=== PATIENT | female | born 1970 | race Hispanic/Latino ===

== ENCOUNTER 2017-01-13 01:11 | Emergency (ER) | payer OTHER ==
[~2017-01-13] VITALS: Ht 157.5 cm; Wt 61.2 kg
[~2017-01-13 01:11] MED LIST: FLEXERIL10 MG PO; MEDROL4 MG PO; NORCO 325 MG-51 TAB PO; TESSALON PERLE100 MG PO; ZITHROMAX Z-PA250 M1 PO
--- NOTE | 2017-01-13 01:16 | ED GI/GU/ABDOMINAL COMPLAINT ---
History of Present Illness General Chief Complaint: Abdominal Pain/Flank Pain Stated Complaint: " RT SIDE STOMACH PAIN [id number] AGO" Source: patient, family, old records Exam Limitations: no limitations Vital Signs & Intake/Output Vital Signs & Intake/Output Vital Signs Date Time Temp Pulse Resp B/P Pulse O2 O2 Flow FiO2 Ox Delivery Rate 01/13 0127 97 Room Air 01/13 0123 96.5 71 18 105/55 97 Room Air Allergies Coded Allergies: NO KNOWN ALLERGIES (01/13/17) Reconcile Medications No Known Home Medications Triage Nurses Notes Reviewed? yes ? N Is pt currently ? No HPI: Patient was awoken from sleep with a sharp stabbing pain in her right upper quadrant. Pain then began to migrate down to the right lower quadrant or continues. The pain is a sharp stabbing pain with periods of a crampy sensation in between. At its worst is 10 out of 10 but when it becomes of Pain decreased to a 7 out of 10. The pain is exacerbated when she walks around. There is no nausea or vomiting. There is no constipation or diarrhea. There is no dysuria. Past History Travel History Traveled to [place] past 21 day No Medical History Any Pertinent Medical History? none Neurological: NONE EENT: NONE Cardiovascular: NONE Respiratory: NONE Gastrointestinal: NONE Hepatic: NONE Renal: NONE Musculoskeletal: NONE Psychiatric: NONE Endocrine: NONE Blood Disorders: NONE Cancer(s): NONE HOT DIPPER/Reproductive: NONE Surgical History Surgical History: non-contributory Psychosocial History What is your primary language Japanese Tobacco Use: Never used ETOH Use: occasional use Illicit Drug Use: denies illicit drug use Family History Hx Contributory? No Review of Systems Review of Systems Constitutional: Reports: no symptoms. EENTM: Reports: no symptoms. Respiratory: Reports: no symptoms. Cardiovascular: Reports: no symptoms. GI: Reports: see HPI, abdominal pain. Genitourinary: Reports: no symptoms. Musculoskeletal: Reports: no symptoms. Skin: Reports: no symptoms. Neurological/Psychological: Reports: no symptoms. Hematologic/Endocrine: Reports: no symptoms. Immunologic/Allergic: Reports: no symptoms. All Other Systems: Reviewed and Negative Physical Exam Physical Exam General Appearance: well developed/nourished, alert, awake, anxious, moderate distress Head: atraumatic, normal appearance Eyes: Bilateral: PERRL, EOMI. Ears, Nose, Throat, Mouth: hearing grossly normal, moist mucous membrane Neck: normal inspection, supple, full range of motion Respiratory: normal breath sounds, chest non-tender, no respiratory distress, lungs clear Cardiovascular: regular rate/rhythm, normal peripheral pulses Gastrointestinal: normal bowel sounds, soft, no organomegaly, guarding, rebound, tenderness (RLQ) Back: normal inspection, normal range of motion Extremities: normal range of motion, evidence of injury Neurologic/Psych: no motor/sensory deficits, awake, alert, oriented x 3, normal mood/affect Skin: intact, normal color, warm/dry Core Measures ACS in differential dx? No Severe Sepsis Present: No Septic Shock Present: No Progress Differential Diagnosis: appendicitis, biliary colic, cholecystitis, diverticulitis, ectopic , gastritis, hepatitis, ischemic bowel, inflamm bowel dis, ovarian cyst, ovarian torsion, pancreatitis, PID/cervicitis, threatened AB, UTI/pyelo Plan of Care: Orders Procedure Date/time Status URINALYSIS 01/13 131 Complete LIPASE 01/13 131 Complete HUMAN BETA HCG SCREEN 01/13 131 Complete COMPREHENSIVE METABOLIC PANEL 01/13 131 Complete CBC WITHOUT DIFFERENTIAL 01/13 131 Complete AMYLASE 01/13 131 Complete Laboratory Tests 01/13/17 0258: Urinalysis LIGHT H, Urine Color STRAW, Urine Clarity CLEAR, Urine pH 6.0, Ur Specific [place] <= 1.005, Urine Protein NEG, Urine Ketones NEG, Urine Nitrite NEG, Urine Bilirubin NEG, Urine Urobilinogen 0.2, Ur Leukocyte Esterase TRACE H , Ur Microscopic SEDIMENT EXAMINED, Urine RBC 1-3, Urine WBC 1-3 H, Ur Epithelial Cells RARE, Urine Hemoglobin MOD H, Urine Glucose NEG 01/13/17 0155: Anion Gap 9, Estimated GFR > 60, BUN/Creatinine Ratio 21.4, Glucose 95, Calcium 9.3, Total Bilirubin 0.8, AST 32, ALT 49, Alkaline Phosphatase 140 H, Total Protein 6.9, Albumin 4.1, Globulin 2.8, Albumin/Globulin Ratio 1.5, Amylase 73, Lipase 122, Total Beta HCG NEGATIVE, CBC w Diff NO MAN DIFF REQ, RBC 4.62, MCV 79.6 L, MCH 27.6, RDW 13.4, MPV 7.8, Gran % 55.1, Lymphocytes % 37.3, Monocytes % 5.4, Eosinophils % 1.8, Basophils % 0.4, Absolute Granulocytes 3.3, Absolute Lymphocytes 2.2, Absolute Monocytes 0.3, Absolute Eosinophils 0.1, Absolute Basophils 0, PUBS MCHC 34.7 Diagnostic Imaging: Viewed by Me: CT Scan. Discussed w/RAD: CT Scan. Radiology Impression: PATIENT: PEARL LEVI PRESENT AGE: 46 PATIENT ACCOUNT NO: [id number] : 68 LOCATION: [facility] ORDERING PHYSICIAN: TERESITA FORDE MD SERVICE DATE: 01/13/17 EXAM TYPE: CAT - CT ABD & PELVIS W IV CONTRAST EXAMINATION: CT ABDOMEN AND PELVIS WITH CONTRAST CLINICAL INFORMATION: Right lower quadrant pain. COMPARISON: Abdominal CT 07/31/2006. TECHNIQUE: Multidetector volumetric imaging was performed of the abdomen and pelvis before and after the IV administration of 92 mL of Optiray 320 intravenous contrast. Sagittal and coronal reformatted images were obtained on the technologist's workstation. FINDINGS: The lung bases are clear. The liver, spleen, adrenal glands, and pancreas are normal. Multiple gallstones and slight irregularity of the gallbladder wall that can be correlated with right upper quadrant ultrasound to exclude acute cholecystitis. The kidneys exhibit symmetric nephrograms without evidence of hydronephrosis or nephrolithiasis. There is a 2 mm calculus within the dependent aspect of the bladder on the right side, possibly recently passed with no associated hydroureteronephrosis. No focal renal lesions. The large and small bowel are normal in caliber without evidence of mechanical obstruction. No focal inflammatory changes adjacent to the large or the small bowel. The appendix is normal. There is no free air and there is no intra-abdominal free fluid. No mesenteric or retroperitoneal adenopathy. The pelvic viscera are normal. No pelvic adenopathy. No free fluid within the pelvis. There are no acute osseous abnormalities. No significant soft tissue abnormality. IMPRESSION: - The appendix is normal. - Multiple gallstones and slight irregularity of the gallbladder wall that can be correlated with right upper quadrant ultrasound to exclude acute cholecystitis. - There is a 2 mm calculus within the dependent aspect of the bladder on the right side, possibly recently passed with no associated hydroureteronephrosis. DICTATED BY: MISTI BLANCO MD DATE/TIME DICTATED:01/13/17410 DELIVERY DRIVER/SUPERVISOR:[email or web address] DATE/TIME TRANSCRIBED:410 CONFIDENTIAL, DO NOT COPY WITHOUT APPROPRIATE AUTHORIZATION. < Electronically signed in Other Vendor System> SIGNED BY: MISTI BLANCO MD 01/13/17419 Initial ED EKG: none Comments: I discussed the lab results and the CAT scan results with the patient and her . Questions have been answered. Departure Departure Disposition: HOME OR SELF CARE Condition: Stable Clinical Impression Primary Impression: Kidney stone Referrals: NAKIA BALLESTEROS MD (PCP/Family) Additional Instructions: There is a kidney stone seen in your bladder. This should not cause any discomfort coming out. There are also gallstones seen. They do not appear to be causing any problems at this time however if you develop pain in the right upper portion of your abdomen return to the emergency room for reevaluation. Departure Forms: Customer Survey General Discharge Information Prescriptions: Current Visit Scripts No Known Home Medications
[2017-01-13 02:27] LABS: ABSOLUTE BASOPHIL COUNT 0 /CUMM (0.0-0.2); ABSOLUTE EOSINOPHIL COUNT 0.1 /CUMM (0.0-0.7); ABSOLUTE GRANULOCYTE CT 3.3 /CUMM (1.4-6.5); ABSOLUTE LYMPH COUNT 2.2 /CUMM (1.2-3.4); ABSOLUTE MONOCYTE COUNT 0.3 /CUMM (0.10-0.60); BASOPHIL % 0.4 % (0.0-2.0); EOSINOPHIL % 1.8 % (0-5); GRANULOCYTE % 55.1 % (42.2-75.2); HEMATOCRIT 36.8 % (37-47); MEAN CORPUSCULAR HGB 27.6 PG (27.0-31.0); MEAN CORPUSCULAR HGB CONC 34.7 G/DL (33.0-37.0); MEAN CORPUSCULAR VOLUME 79.6 FL (81.0-99.0); MEAN PLATELET VOLUME 7.8 FL (7.4-10.4); PLATELET COUNT 285 /CUMM (130-400); RBC DISTRIBUTION WIDTH 13.4 % (11.5-14.5); RED BLOOD CELL CT 4.62 /CUMM (4.20-5.40); WHITE BLOOD CELL COUNT 5.9 /CUMM (4.8-10.8)
--- NOTE | 2017-01-13 04:20 | CT SCAN REPORT ---
EXAMINATION: CT ABDOMEN AND PELVIS WITH CONTRAST CLINICAL INFORMATION: Right lower quadrant pain. COMPARISON: Abdominal CT 07/31/2006. TECHNIQUE: Multidetector volumetric imaging was performed of the abdomen and pelvis before and after the IV administration of 92 mL of Optiray 320 intravenous contrast. Sagittal and coronal reformatted images were obtained on the technologist's workstation. FINDINGS: The lung bases are clear. The liver, spleen, adrenal glands, and pancreas are normal. Multiple gallstones and slight irregularity of the gallbladder wall that can be correlated with right upper quadrant ultrasound to exclude acute cholecystitis. The kidneys exhibit symmetric nephrograms without evidence of hydronephrosis or nephrolithiasis. There is a 2 mm calculus within the dependent aspect of the bladder on the right side, possibly recently passed with no associated hydroureteronephrosis. No focal renal lesions. The large and small bowel are normal in caliber without evidence of mechanical obstruction. No focal inflammatory changes adjacent to the large or the small bowel. The appendix is normal. There is no free air and there is no intra-abdominal free fluid. No mesenteric or retroperitoneal adenopathy. The pelvic viscera are normal. No pelvic adenopathy. No free fluid within the pelvis. There are no acute osseous abnormalities. No significant soft tissue abnormality. IMPRESSION: - The appendix is normal. - Multiple gallstones and slight irregularity of the gallbladder wall that can be correlated with right upper quadrant ultrasound to exclude acute cholecystitis. - There is a 2 mm calculus within the dependent aspect of the bladder on the right side, possibly recently passed with no associated hydroureteronephrosis.
[2017-01-13 04:40] VITALS: BP 103/56
== END 2017-01-13 05:17 ==
LOC: ERH 01:11
PROVIDERS: Emergency Medicine
DX: N20.0 Calculus of kidney (principal)
CPT/HCPCS: 74177; 81001; 96361; 96374; J1885

== ENCOUNTER 2017-03-21 05:44 | Emergency (ER) | payer OTHER ==
[~2017-03-21] VITALS: Ht 157.5 cm; Wt 61.2 kg
[~2017-03-21 05:44] MED LIST changes: -PERCOCET 5-3251 EACH PO; -ZANTAC150 M1 PO
--- NOTE | 2017-03-21 06:00 | ED GI/GU/ABDOMINAL COMPLAINT ---
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 PT WRITHING IN PAIN IN WHEELCHAIR IN TRIAGE. DENIES N/V/D. DENIES CP/SOB. HAVING DIFFICULTY ANSWERING QUETSIONS DUE TO PAIN BROUGHT TO ROOM 6 FOR EVAL. Triage Nurses Notes Reviewed? yes ? n Is pt currently ? No Onset: Abrupt Duration: minute(s):, continues in ED Timing: single episode today Quality/Severity: burning, sharpness Location: epigastric Radiation: no radiation Activities at Onset: none Prior Abdominal Problems: none Modifying Factors: Worsens With: movement, palpation. Associated Symptoms: abdominal pain HPI: 46 yo woman in prior good health presents with mid epigastric abdominal pain x 30 minutes. Mild nausea, no vomiting, fever, chills, diarrhea. She is uncomfortable in the ED, writing in pain. Past History Travel History Traveled to [place] past 21 day No Medical History Any Pertinent Medical History? see below for history Neurological: NONE EENT: NONE Cardiovascular: NONE Respiratory: NONE Gastrointestinal: NONE Hepatic: NONE Renal: NONE Musculoskeletal: NONE Psychiatric: NONE Endocrine: NONE Blood Disorders: NONE Cancer(s): NONE FLASK FITTER/Reproductive: NONE Surgical History Surgical History: non-contributory Psychosocial History What is your primary language Mexican Tobacco Use: Never used Family History Hx Contributory? No Review of Systems Review of Systems Constitutional: Reports: no symptoms. EENTM: Reports: no symptoms. Respiratory: Reports: no symptoms. Cardiovascular: Reports: no symptoms. GI: Reports: no symptoms. Genitourinary: Reports: no symptoms. Musculoskeletal: Reports: no symptoms. Skin: Reports: no symptoms. Neurological/Psychological: Reports: no symptoms. Hematologic/Endocrine: Reports: no symptoms. Immunologic/Allergic: Reports: no symptoms. All Other Systems: Reviewed and Negative Physical Exam Physical Exam Head: atraumatic, normal appearance Eyes: Bilateral: normal appearance. Ears, Nose, Throat, Mouth: hearing grossly normal, moist mucous membrane Neck: normal inspection, supple, full range of motion Respiratory: normal breath sounds, chest non-tender, no respiratory distress, quiet respiration, lungs clear Cardiovascular: regular rate/rhythm Gastrointestinal: normal bowel sounds, soft, mid epigastric tenderness to palpation. no rebound. no guarding. Back: normal inspection, normal range of motion Extremities: normal range of motion Neurologic/Psych: no motor/sensory deficits, awake, alert, oriented x 3 Skin: intact, normal color, warm/dry Core Measures ACS in differential dx? No Severe Sepsis Present: No Septic Shock Present: No Progress Differential Diagnosis: gastritis gerd viral syndrome vs other. Plan of Care: Orders Procedure Date/time Status Add-on Test (ER Only) 03/21 0633 Active HUMAN BETA HCG TITRE 03/21 0600 Complete COMPREHENSIVE METABOLIC PANEL 03/21 0600 Complete TROPONIN LEVEL 03/21 0554 Complete LIPASE 03/21 0554 Complete HUMAN BETA HCG SCREEN 03/21 0554 Complete AMYLASE 03/21 0554 Complete EKG 03/21 0552 Active CBC WITHOUT DIFFERENTIAL 03/21 0551 Complete Laboratory Tests 03/21/17 0600: Anion Gap 16, Estimated GFR > 60, BUN/Creatinine Ratio 28.6 H, Glucose 107 H, Calcium 9.5, Total Bilirubin 1.0, AST 26, ALT 47, Alkaline Phosphatase 136 H, Troponin I < 0.01, Total Protein 7.3, Albumin 4.5, Globulin 2.8, Albumin/ Globulin Ratio 1.6, Amylase 72, Lipase 135, Beta HCG, Quant 7.1, Total Beta HCG POSITIVE, CBC w Diff MAN DIFF ORDERED, RBC 4.80, MCV 80.7 L, MCH 27.1, RDW 13.4 , MPV 7.7, Gran % 49.1, Lymphocytes % 44.0, Monocytes % 3.8, Eosinophils % 2.2, Basophils % 0.9, Absolute Granulocytes 4.6, Segmented Neutrophils 47, Absolute Lymphocytes 4.1 H, Lymphocytes 44, Monocytes 5, Absolute Monocytes 0.4, Eosinophils 3, Absolute Eosinophils 0.2, Basophils 1, Absolute Basophils 0.1, Platelet Estimate ADEQUATE, Ovalocytes 1+, PUBS MCHC 33.5 03/21/17 0551: Sodium Cancelled, Potassium Cancelled, Chloride Cancelled, Carbon Dioxide Cancelled, Anion Gap Cancelled, BUN Cancelled, Creatinine Cancelled, BUN/ Creatinine Ratio Cancelled, Glucose Cancelled, Calcium Cancelled, Total Bilirubin Cancelled, AST Cancelled, ALT Cancelled, Alkaline Phosphatase Cancelled, Total Protein Cancelled, Albumin Cancelled, Globulin Cancelled, Albumin/Globulin Ratio Cancelled Initial ED EKG: normal axis, normal intervals, normal p-waves, normal QRS complex, borderline flipped t's v1, v2, v3 Departure Departure Disposition: STILL A PATIENT Condition: Stable Clinical Impression Primary Impression: Abdominal pain Referrals: NAKIA BALLESTEROS MD (PCP/Family) Departure Forms: Customer Survey General Discharge Information Prescriptions: Current Visit Scripts Ranitidine HCl (Zantac) 1 TAB PO BID PRN stomach burning #60 TAB Comments 03/21/17, 7:31am... pt comfortable after supportive medications... Her serum quant was low (7) prompting the question if this was (a) early vs (b)hormone secreting tumor... discussed at length with patient.... she feels comfortable to go home... will defer ct scan given equivocal test... 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 Of note, she has no vaginal bleeding or lower abdominal pain. No Known Home Medications
[2017-03-21 06:08] VITALS: BP 120/58
[2017-03-21 06:13] LABS: ABSOLUTE BASOPHIL COUNT 0.1 /CUMM (0.0-0.2); ABSOLUTE EOSINOPHIL COUNT 0.2 /CUMM (0.0-0.7); ABSOLUTE GRANULOCYTE CT 4.6 /CUMM (1.4-6.5); ABSOLUTE LYMPH COUNT 4.1 /CUMM (1.2-3.4); ABSOLUTE MONOCYTE COUNT 0.4 /CUMM (0.10-0.60); BASOPHIL % 0.9 % (0.0-2.0); EOSINOPHIL % 2.2 % (0-5); GRANULOCYTE % 49.1 % (42.2-75.2); HEMATOCRIT 38.8 % (37-47); MEAN CORPUSCULAR HGB 27.1 PG (27.0-31.0); MEAN CORPUSCULAR HGB CONC 33.5 G/DL (33.0-37.0); MEAN CORPUSCULAR VOLUME 80.7 FL (81.0-99.0); MEAN PLATELET VOLUME 7.7 FL (7.4-10.4); PLATELET COUNT 309 /CUMM (130-400); RBC DISTRIBUTION WIDTH 13.4 % (11.5-14.5); WHITE BLOOD CELL COUNT 9.3 /CUMM (4.8-10.8)
[2017-03-21] MEDS ORDERED: ZANTAC150 M1 PO (07:24)
[2017-03-21] MEDS ORDERED: PERCOCET 5-3251 EACH PO (18:24)
== END 2017-03-21 07:38 ==
LOC: ERH 05:44
PROVIDERS: Emergency Medicine
DX: R10.13 Epigastric pain (principal)
CPT/HCPCS: 81001; 88304; 93005; 93010; 96374; 96375; J0131; J0690; J1170; J2250; J2405; J3010

== ENCOUNTER → 2017-03-21 | Day surgery (SDC) | payer OTHER ==
[~2017-03-21] VITALS: Ht 157.5 cm; Wt 61.2 kg
[~2017-03-21] MED LIST changes: +PERCOCET 5-3251 EACH PO; +ZANTAC150 M1 PO
[2017-03-21 12:05] LABS: ABSOLUTE BASOPHIL COUNT 0 /CUMM (0.0-0.2); ABSOLUTE EOSINOPHIL COUNT 0 /CUMM (0.0-0.7); ABSOLUTE GRANULOCYTE CT 9.8 /CUMM (1.4-6.5); ABSOLUTE LYMPH COUNT 0.5 /CUMM (1.2-3.4); ABSOLUTE MONOCYTE COUNT 0.2 /CUMM (0.10-0.60); BASOPHIL % 0 % (0.0-2.0); EOSINOPHIL % 0 % (0-5); HEMATOCRIT 36.7 % (37-47); MEAN CORPUSCULAR HGB 27.1 PG (27.0-31.0); MEAN CORPUSCULAR HGB CONC 33.7 G/DL (33.0-37.0); MEAN CORPUSCULAR VOLUME 80.4 FL (81.0-99.0); MEAN PLATELET VOLUME 7.3 FL (7.4-10.4); PLATELET COUNT 249 /CUMM (130-400); RBC DISTRIBUTION WIDTH 13.4 % (11.5-14.5); RED BLOOD CELL CT 4.56 /CUMM (4.20-5.40); WHITE BLOOD CELL COUNT 10.5 /CUMM (4.8-10.8)
[2017-03-21 12:31] LABS: GRANULOCYTE % 93.7 % (42.2-75.2)
--- NOTE | 2017-03-21 13:54 | ED GI/GU/ABDOMINAL COMPLAINT ---
History of Present Illness General Chief Complaint: Abdominal Pain/Flank Pain Stated Complaint: ABD PAIN SEEN HERE THIS AM FOR SAME Source: patient Exam Limitations: no limitations Allergies Coded Allergies: No Known Allergies (03/21/17) Reconcile Medications Oxycodone HCl/Acetaminophen (Percocet 5-325 MG Tablet) 5 MG-325 MG TABLET 1-2 TAB PO Q4-6 PRN PRN pain control you may take tylenol alternatively, but do not combine with tylenol. Triage Note: TRIAGE: 46 Y/O FEMALE SEEN EARLIER THIS MORNING/ LAST NIGHT FOR SAME C/O ABDOMINAL PAIN. DIAGNOSED WITH GASTRITIS, SENT HOME WITH RX: ZANTAC, NO RELIEF. Triage Nurses Notes Reviewed? yes ? N Is pt currently ? No HPI: This patient is a 46-year-old female who presented to the emergency department today for evaluation of abdominal pain. This patient was seen here this morning for the same. She reported that the pain began at approximately 5:00 this morning at which time she came to the emergency department. She reported the pain except area of 10, sharp, located in her upper abdomen The patient reported vomiting and nausea. The pain has been constant with no provoking or palliative factors. The patient denied any back pain, fevers, chills. She did report some lower, left sided chest pain which is worse when the pain gets higher on the pain scale. (IRMA CHADWICK,FAYE) Vital Signs & Intake/Output Vital Signs & Intake/Output Vital Signs Date Time Temp Pulse Resp B/P B/P Pulse O2 O2 Flow FiO2 Mean Ox Delivery Rate 03/21 1610 99.6 96 20 120/66 97 Room Air 03/21 1455 98.9 93 18 114/63 96 Room Air ED Intake and Output 03/22 0000 03/21 1200 Intake Total Output Total Balance Patient 135 lb Weight Weight Reported by Patient Measurement Method Past History Travel History Traveled to [place] past 21 day No Medical History Any Pertinent Medical History? see below for history Neurological: NONE EENT: NONE Cardiovascular: NONE Respiratory: NONE Gastrointestinal: GASTRITIS DIAG 03/20/2017 Hepatic: NONE Renal: NONE Musculoskeletal: NONE Psychiatric: NONE Endocrine: NONE Blood Disorders: NONE Cancer(s): NONE NETWORK COMMUNICATIONS ENGINEER/Reproductive: NONE Surgical History Surgical History: non-contributory Psychosocial History What is your primary language Polish Tobacco Use: Never used ETOH Use: occasional use Illicit Drug Use: denies illicit drug use Family History Hx Contributory? No (IRMA CHADWICK,FAYE) Review of Systems Review of Systems Constitutional: Reports: no symptoms. EENTM: Reports: no symptoms. Respiratory: Reports: no symptoms. Cardiovascular: Reports: no symptoms. GI: Reports: see HPI. Genitourinary: Reports: no symptoms. Musculoskeletal: Reports: no symptoms. Skin: Reports: no symptoms. Neurological/Psychological: Reports: no symptoms. All Other Systems: Reviewed and Negative (IRMA CHADWICK,FAYE) Physical Exam Physical Exam Gastrointestinal: normal bowel sounds, soft, no organomegaly, TENDERNESS TO PALPATION IN THE EPIGASTRIC REGION AND RIGHT UPPER QUADRANT. pOSITIVE Pinzon SIGN. nO REBOUND OR GUARDING. nO mCbURNEY'S POINT TENDERNESS. nEGATIVE rOVSING SIGN. Comments: Well-developed well-nourished person in moderate distress HEENT: Normal EENT exam, normocephalic, moist mucous membranes Pupils equally round and reactive to light. Nose is atraumatic. Neck: Supple, no lymphadenopathy Back: Normal gait Cardiovascular: Regular rate and rhythm with no murmurs, rubs, or gallops Respiratory: Chest nontender. No respiratory distress. Breath sounds clear to auscultation bilaterally with no wheezes, rales, rhonchi Extremity: Normal pulses Neuro: Alert oriented x3, cranial nerves II through XII grossly intact. Skin: No appreciable rash on exposed skin, skin is warm and dry. Psych: Mood and affect is normal Core Measures ACS in differential dx? No Severe Sepsis Present: No Septic Shock Present: No (IRMA CHADWICK,FAYE) Progress Differential Diagnosis: AAA, AMI, appendicitis, biliary colic, bowel obstruction , colon cancer, cholecystitis, diverticulitis, esophageal varices, gastritis, hepatitis, ischemic bowel, inflamm bowel dis, intrauterine , kidney stone, ovarian cyst, ovarian torsion, pancreatitis, PID/cervicitis, PUD/GERD, perforated viscous, threatened AB, UTI/pyelo, ECTOPIC Diagnostic Imaging: Viewed by Me: Ultrasound. Discussed w/RAD: Ultrasound. Radiology Impression: PATIENT: PEARL LEVI PRESENT AGE: 46 PATIENT ACCOUNT NO: [id number] : 68 LOCATION: [facility] ORDERING PHYSICIAN: FAYE SOLIS PA-C SERVICE DATE: 05/06/17-1250 EXAM TYPE: US - US-LIMITED ABDOMEN; US-PELVIC LOTT; US-TRANSVAGINAL EXAMINATION: ABDOMINAL ULTRASOUND, LIMITED RIGHT UPPER QUADRANT. ABDOMINAL ULTRASOUND, LIMITED RIGHT LOWER QUADRANT. PELVIC ULTRASOUND, TRANSABDOMINAL AND TRANSVAGINAL. CLINICAL INFORMATION: Severe abdominal pain. Evaluate for gallstones and appendicitis. COMPARISON: CT scan of the abdomen and pelvis dated 01/13/2017. TECHNIQUE: Real-time imaging of the right upper quadrant abdominal viscera. Graded compression ultrasound of the right lower quadrant/appendix ultrasound with real-time assessment by the reading radiologist. Transabdominal and transvaginal pelvic ultrasound. A transvaginal study was performed in addition to the transabdominal study which did not yield an adequate examination of the uterus and ovaries due to superimposed distended gas-filled loops of bowel. FINDINGS: RIGHT UPPER QUADRANT ULTRASOUND: PANCREAS: The pancreatic body, portions of the pancreatic head and tail are well visualized and appear unremarkable. Remainder of the pancreas is obscured by overlying bowel gas. ABDOMINAL AORTA: The proximal, middle, and distal aortic segments are normal in caliber. INFERIOR VENA CAVA: Visualized portions are normal. LIVER: Normal. The liver demonstrates normal size, contour and echogenicity. No focal lesion or intrahepatic biliary duct dilatation. GALLBLADDER: The gallbladder is physiologically distended. Multiple echogenic shadowing gallstones are seen within the gallbladder. Gallbladder wall is abnormally thickened, measuring between 0.4 and 0.6 cm. Small amount of gallbladder wall edema is seen. A positive sonographic Pinzon's sign is present. Findings are consistent with acute cholecystitis. COMMON BILE DUCT: Normal in caliber measuring 0.6 cm in diameter. RIGHT KIDNEY: Normal. No hydronephrosis. No renal calculi or focal parenchymal lesions. The kidney measures 10.5 cm in maximum dimension. FREE FLUID: None. RIGHT LOWER QUADRANT GRADED COMPRESSION ULTRASOUND: The ascending colon and cecum are identified and are normally compressible. The appendix is not identified. No abnormal focal fluid collection is seen in the right lower quadrant. No tenderness is elicited while scanning over the right lower quadrant. The abdomen feels soft and graded compression ultrasound can be easily performed. No guarding is noted. PELVIC AND TRANSVAGINAL PELVIC ULTRASOUND: UTERUS: Uterus is anteverted and anteflexed, measuring 7.9 x 3.2 x 5.4 cm. Cervical length is normal, measuring 1.8 cm. Endometrial stripe thickness is normal, measuring 0.2 cm. No endometrial free fluid. No focal myometrial mass. OVARIES: The right ovary is faintly visualized in the transverse plane only on transabdominal exam and cannot be discretely seen in additional planes orbits transvaginal evaluation. Visualized portions of the right ovary are unremarkable with normal arterial flow demonstrated. The left ovary could not be seen either transabdominally or transvaginally. OTHER: No suspicious free fluid or adnexal mass noted. IMPRESSION: 1. Cholelithiasis, gallbladder wall thickening and edema , and positive sonographic Pinzon sign. Findings are consistent with acute cholecystitis. 2. Right upper quadrant abdominal ultrasound otherwise unremarkable. 3. A normal nor abnormal appendix is not discretely identified. However, no focal inflammatory phlegmon or collection is seen in the right lower quadrant and no tenderness is elicited while scanning over the right lower quadrant. These findings argue against the presence of acute cholecystitis. Close clinical correlation is requested. If clinical concern remains high, additional imaging with CT scan of the abdomen and pelvis with IV contrast is recommended. 4. Uterus unremarkable. 5. The right ovary only partially visualized and grossly unremarkable. Left ovary not seen. No suspicious adnexal mass. Findings discussed with Zunilda Solis 03/21/2017, 2:25 PM. DICTATED BY: NERISSA PEREIRA MD DATE/TIME DICTATED:03/21/171342 EXPENSE CLERK:TOM DATE/TIME TRANSCRIBED:03/21/171342 CONFIDENTIAL, DO NOT COPY WITHOUT APPROPRIATE AUTHORIZATION. <Electronically signed in Other Vendor System> SIGNED BY: NERISSA PEREIRA MD 03/21/17 1500 Initial ED EKG: normal axis, normal intervals, normal sinus rhythm, no ST T wave changes, 79 BPM Comments: 03/21/2017 2:24:35 PM: I was at the patient's bedside for reevaluation. She reported that the pain has come back. She is currently writhing in pain. 03/21/2017 2:27:30 PM: I received a call from [facility]. Reported that this case as multiple gallstones and thickening of the gallbladder wall. Common bile duct is not dilated, 6 mm. She feels that this reflects acute cholecystitis. 03/21/2017 3:28:26 PM: I spoke to on-call general surgeon, Dr. Child. Surgical PAs currently at the bedside for [id number] evaluation. (FAYE SOLIS PA-C) Plan of Care: Orders Procedure Date/time Status PATHOLOGY SPECIMEN 03/21 1721 Active Departure Departure Disposition: STILL A PATIENT Condition: Stable Clinical Impression Primary Impression: Acute cholecystitis Referrals: NAKIA BALLESTEROS MD (PCP/Family) Departure Forms: Customer Survey General Discharge Information Prescriptions: Current Visit Scripts Oxycodone HCl/Acetaminophen (Percocet 5-325 MG Tablet) 1-2 TAB PO Q4-6 PRN PRN pain control #36 TAB you may take tylenol alternatively, but do not combine with tylenol. OR/GI Note Spoke With: AUGUSTA JAMIL,JEREMIE ED Treatment Decision: PEARL LEVI requires urgent operative management or an emergent procedure that cannot be performed in the Emergency Room setting. Transport To: [facility] (FAYE SOLIS PA-C) PA/TRAFFIC AND TRANSPORT PLANNER Co-Sign Statement Statement: ED Attending supervision documentation- x I saw and evaluated the patient. I have also reviewed all the pertinent lab results and diagnostic results. I agree with the findings and the plan of care as documented in the PA's/TRAFFIC AND TRANSPORT PLANNER's documentation. [] I have reviewed the ED Record and agree with the PA's/TRAFFIC AND TRANSPORT PLANNER's documentation. [] Additions or exceptions (if any) to the PAs/TRAFFIC AND TRANSPORT PLANNER's note and plan are summarized below: [] (ROMARIO LE MD) ED Attending supervision documentation- x I saw and evaluated the patient. I have also reviewed all the pertinent lab results and diagnostic results. I agree with the findings and the plan of care as documented in the PA's/TRAFFIC AND TRANSPORT PLANNER's documentation. [] I have reviewed the ED Record and agree with the PA's/TRAFFIC AND TRANSPORT PLANNER's documentation. [] Additions or exceptions (if any) to the PAs/TRAFFIC AND TRANSPORT PLANNER's note and plan are summarized below: [] (ROMARIO LE MD)
--- NOTE | 2017-03-21 15:00 | ULTRASOUND REPORT ---
EXAMINATION: ABDOMINAL ULTRASOUND, LIMITED RIGHT UPPER QUADRANT. ABDOMINAL ULTRASOUND, LIMITED RIGHT LOWER QUADRANT. PELVIC ULTRASOUND, TRANSABDOMINAL AND TRANSVAGINAL. CLINICAL INFORMATION: Severe abdominal pain. Evaluate for gallstones and appendicitis. COMPARISON: CT scan of the abdomen and pelvis dated 01/13/2017. TECHNIQUE: Real-time imaging of the right upper quadrant abdominal viscera. Graded compression ultrasound of the right lower quadrant/appendix ultrasound with real-time assessment by the reading radiologist. Transabdominal and transvaginal pelvic ultrasound. A transvaginal study was performed in addition to the transabdominal study which did not yield an adequate examination of the uterus and ovaries due to superimposed distended gas-filled loops of bowel. FINDINGS: RIGHT UPPER QUADRANT ULTRASOUND: PANCREAS: The pancreatic body, portions of the pancreatic head and tail are well visualized and appear unremarkable. Remainder of the pancreas is obscured by overlying bowel gas. ABDOMINAL AORTA: The proximal, middle, and distal aortic segments are normal in caliber. INFERIOR VENA CAVA: Visualized portions are normal. LIVER: Normal. The liver demonstrates normal size, contour and echogenicity. No focal lesion or intrahepatic biliary duct dilatation. GALLBLADDER: The gallbladder is physiologically distended. Multiple echogenic shadowing gallstones are seen within the gallbladder. Gallbladder wall is abnormally thickened, measuring between 0.4 and 0.6 cm. Small amount of gallbladder wall edema is seen. A positive sonographic Pinzon's sign is present. Findings are consistent with acute cholecystitis. COMMON BILE DUCT: Normal in caliber measuring 0.6 cm in diameter. RIGHT KIDNEY: Normal. No hydronephrosis. No renal calculi or focal parenchymal lesions. The kidney measures 10.5 cm in maximum dimension. FREE FLUID: None. RIGHT LOWER QUADRANT GRADED COMPRESSION ULTRASOUND: The ascending colon and cecum are identified and are normally compressible. The appendix is not identified. No abnormal focal fluid collection is seen in the right lower quadrant. No tenderness is elicited while scanning over the right lower quadrant. The abdomen feels soft and graded compression ultrasound can be easily performed. No guarding is noted. PELVIC AND TRANSVAGINAL PELVIC ULTRASOUND: UTERUS: Uterus is anteverted and anteflexed, measuring 7.9 x 3.2 x 5.4 cm. Cervical length is normal, measuring 1.8 cm. Endometrial stripe thickness is normal, measuring 0.2 cm. No endometrial free fluid. No focal myometrial mass. OVARIES: The right ovary is faintly visualized in the transverse plane only on transabdominal exam and cannot be discretely seen in additional planes orbits transvaginal evaluation. Visualized portions of the right ovary are unremarkable with normal arterial flow demonstrated. The left ovary could not be seen either transabdominally or transvaginally. OTHER: No suspicious free fluid or adnexal mass noted. IMPRESSION: 1. Cholelithiasis, gallbladder wall thickening and edema, and positive sonographic Pinzon sign. Findings are consistent with acute cholecystitis. 2. Right upper quadrant abdominal ultrasound otherwise unremarkable. 3. A normal nor abnormal appendix is not discretely identified. However, no focal inflammatory phlegmon or collection is seen in the right lower quadrant and no tenderness is elicited while scanning over the right lower quadrant. These findings argue against the presence of acute cholecystitis. Close clinical correlation is requested. If clinical concern remains high, additional imaging with CT scan of the abdomen and pelvis with IV contrast is recommended. 4. Uterus unremarkable. 5. The right ovary only partially visualized and grossly unremarkable. Left ovary not seen. No suspicious adnexal mass. Findings discussed with Zunilda Nash 03/21/2017, 2:25 PM.
--- NOTE | 2017-03-21 15:59 | History & Physical Pre-Op ---
RICH ZAVALA 03/21/17 1551: General Information and HPI MD Statement: I have seen and personally examined PEARL LEVI and documented this H& P. The patient is a 46 year old F who presented with a patient stated chief complaint of [abdominal pain]. Source of Information: patient History of Present Illness: This 46 year old female with no significant past medical history presents with sudden onset abdominal pain. She reports the pain woke her up around 5am today. She denies history of prior episodes, although had a recent ED visit for "kidney stones". She admits to some nausea and vomiting today. Otherwise has been well. No recent illnesses. No shortness of breath. No dizziness. no chest pains. No difficulty urinating. She admits to family history of gallstones. She actually presented this morning to the ED and left after given pain medication, but returned after her pain returned shortly after leaving. Allergies/Medications Allergies: Coded Allergies: No Known Allergies (03/21/17) Home Med list No Known Home Medications Past History Medical History Neurological: NONE EENT: NONE Cardiovascular: NONE Respiratory: NONE Gastrointestinal: GASTRITIS DIAG 03/20/2017 Hepatic: NONE Renal: NONE Musculoskeletal: NONE Psychiatric: NONE Endocrine: NONE Blood Disorders: NONE Cancer(s): NONE MIDDLE SCHOOL READING TEACHER/Reproductive: NONE Surgical History Pertinent Surgical History: none (ovarian cyst removal), non-contributory Past Family/Social History Psychosocial History Smoking Status: Never Smoked ETOH Use: occasional use Illicit Drug Use: denies illicit drug use Employment History Employment: Employed Profession/Employer: daytime babysitter insurance legal assistant Review of Systems Review of Systems: admits: abdominal pain, nausea/vomiting, chills/sweats denies: dizziness, shortness of breath, dysuria Exam & Diagnostic Data Last 24 Hrs of Vital Signs/I&O Vital Signs Date Time Temp Pulse Resp B/P B/P Pulse O2 O2 Flow FiO2 Mean Ox Delivery Rate 03/21 1455 98.9 93 18 114/63 96 Room Air 03/21 1249 98.7 91 18 128/71 98 Room Air 03/21 1101 98.2 101 18 120/72 98 Room Air Room Air Intake & Output 03/21 1600 / 0800 05/ 0000 Intake Total Output Total Balance Patient 135 lb Weight Weight Reported by Patient Measurement Method Physical Exam: General - alert & oriented x 3. comfortable. no acute distress. Lungs - clear bilaterally. no w/r/r. Cardiac - s1s2. reg. Abdomen - soft. tender in the right upper quadrant and epigastric region. Extremities - warm bilaterally. no c/c/e. calves soft and nontender. Neuro - no focal deficits. speech smooth and coordinated. Last 24 Hrs of Labs/Jaime: Laboratory Tests 03/21/17 1344: Urinalysis LIGHT H, Urine Color YEL, Urine Clarity HAZY H, Urine pH 7.5, Ur Specific [place] 1.015, Urine Protein NEG, Urine Ketones TRACE H, Urine Nitrite NEG, Urine Bilirubin NEG, Urine Urobilinogen 0.2, Ur Leukocyte Esterase NEG, Ur Microscopic SEDIMENT EXAMINED, Urine RBC 3-5, Urine Hemoglobin SMALL H, Urine Glucose NEG 03/21/17 1157: Anion Gap 13, Estimated GFR > 60, BUN/Creatinine Ratio 23.3, Glucose 131 H, Calcium 8.9, Total Bilirubin 1.2, Direct Bilirubin 0.2, AST 89 H, ALT 95 H, Alkaline Phosphatase 132 H, Troponin I < 0.01, Total Protein 6.9, Albumin 4.3, Globulin 2.6, Albumin/Globulin Ratio 1.7, Lipase 49, Beta HCG, Quant 5.8, CBC w Diff NO MAN DIFF REQ, RBC 4.56, MCV 80.4 L, MCH 27.1, RDW 13.4, MPV 7.3 L, Gran % 93.7 H, Lymphocytes % 4.8 L, Monocytes % 1.5 L, Eosinophils % 0, Basophils % 0 L, Absolute Granulocytes 9.8 H, Absolute Lymphocytes 0.5 L, Absolute Monocytes 0.2, Absolute Eosinophils 0, Absolute Basophils 0, PUBS MCHC 33.7 Diagnostic Data Other Results EXAMINATION: ABDOMINAL ULTRASOUND, LIMITED RIGHT UPPER QUADRANT. ABDOMINAL ULTRASOUND, LIMITED RIGHT LOWER QUADRANT. PELVIC ULTRASOUND, TRANSABDOMINAL AND TRANSVAGINAL. CLINICAL INFORMATION: Severe abdominal pain. Evaluate for gallstones and appendicitis. COMPARISON: CT scan of the abdomen and pelvis dated 01/13/2017. TECHNIQUE: Real-time imaging of the right upper quadrant abdominal viscera. Graded compression ultrasound of the right lower quadrant/appendix ultrasound with real-time assessment by the reading radiologist. Transabdominal and transvaginal pelvic ultrasound. A transvaginal study was performed in addition to the transabdominal study which did not yield an adequate examination of the uterus and ovaries due to superimposed distended gas-filled loops of bowel. FINDINGS: RIGHT UPPER QUADRANT ULTRASOUND: PANCREAS: The pancreatic body, portions of the pancreatic head and tail are well visualized and appear unremarkable. Remainder of the pancreas is obscured by overlying bowel gas. ABDOMINAL AORTA: The proximal, middle, and distal aortic segments are normal in caliber. INFERIOR VENA CAVA: Visualized portions are normal. LIVER: Normal. The liver demonstrates normal size, contour and echogenicity. No focal lesion or intrahepatic biliary duct dilatation. GALLBLADDER: The gallbladder is physiologically distended. Multiple echogenic shadowing gallstones are seen within the gallbladder. Gallbladder wall is abnormally thickened, measuring between 0.4 and 0.6 cm. Small amount of gallbladder wall edema is seen. A positive sonographic Pinzon's sign is present. Findings are consistent with acute cholecystitis. COMMON BILE DUCT: Normal in caliber measuring 0.6 cm in diameter. RIGHT KIDNEY: Normal. No hydronephrosis. No renal calculi or focal parenchymal lesions. The kidney measures 10.5 cm in maximum dimension. FREE FLUID: None. RIGHT LOWER QUADRANT GRADED COMPRESSION ULTRASOUND: The ascending colon and cecum are identified and are normally compressible. The appendix is not identified. No abnormal focal fluid collection is seen in the right lower quadrant. No tenderness is elicited while scanning over the right lower quadrant. The abdomen feels soft and graded compression ultrasound can be easily performed. No guarding is noted. PELVIC AND TRANSVAGINAL PELVIC ULTRASOUND: UTERUS: Uterus is anteverted and anteflexed, measuring 7.9 x 3.2 x 5.4 cm. Cervical length is normal, measuring 1.8 cm. Endometrial stripe thickness is normal, measuring 0.2 cm. No endometrial free fluid. No focal myometrial mass. OVARIES: The right ovary is faintly visualized in the transverse plane only on transabdominal exam and cannot be discretely seen in additional planes orbits transvaginal evaluation. Visualized portions of the right ovary are unremarkable with normal arterial flow demonstrated. The left ovary could not be seen either transabdominally or transvaginally. OTHER: No suspicious free fluid or adnexal mass noted. IMPRESSION: 1. Cholelithiasis, gallbladder wall thickening and edema, and positive sonographic Pinzon sign. Findings are consistent with acute cholecystitis. 2. Right upper quadrant abdominal ultrasound otherwise unremarkable. 3. A normal nor abnormal appendix is not discretely identified. However, no focal inflammatory phlegmon or collection is seen in the right lower quadrant and no tenderness is elicited while scanning over the right lower quadrant. These findings argue against the presence of acute cholecystitis. Close clinical correlation is requested. If clinical concern remains high, additional imaging with CT scan of the abdomen and pelvis with IV contrast is recommended. 4. Uterus unremarkable. 5. The right ovary only partially visualized and grossly unremarkable. Left ovary not seen. No suspicious adnexal mass. Findings discussed with Zunilda Nash 03/21/2017, 2:25 PM. DICTATED BY: NERISSA PEREIRA MD DATE/TIME DICTATED:03/21/171342 STORE GROUP MANAGER:TMO DATE/TIME TRANSCRIBED:03/21/171342 Assessment/Plan Assessment/Plan: This 46 year old female with no significant past medical history, presents with abdominal pain consistent with the ultrasound findings showing acute cholecystitis currently npo / ivf iv unasyn given in ED consented for lap vs open cholecystectomy pain control as needed hep sc to be ordered post-op likely 23hr obs will d/w As Ranked By This Provider Problem List: 1. Acute cholecystitis JADA BASURTOLEONORADIO 03/21/17 1818: Attending MD Review Statement Attending Statement Attending MD Statement: examined this patient, discuss w/resident/PA/PROOFER APPRENTICE, agreed w/resident/PA/PROOFER APPRENTICE, discussed with family, reviewed EMR data (avail), reviewed images Attending Assessment/Plan: Patient seen and examined, agree with above. Abdominal pain with acut onset this AM. Abdominal ultrasounf c/w acute cholecystitis. Patient with RUQ pain. Will admit, NPO/IVF, IV Abx, and plan for Lap Selin. Discussed with patient, family, and ED staff.
--- NOTE | 2017-03-21 16:04 | Admission Core Measures ---
Admission Lab Results I reviewed the following labs: Laboratory Tests 03/21 03/21 1344 1157 Chemistry Sodium (137 - 145 mmol/L) 139 Potassium (3.5 - 5.1 mmol/L) 3.9 Chloride (98 - 107 mmol/L) 104 Carbon Dioxide (22 - 30 mmol/L) 23 Anion Gap (5 - 16) 13 BUN (7 - 17 mg/dL) 14 Creatinine (0.5 - 1.0 mg/dL) 0.6 Estimated GFR (>60 ml/min) > 60 BUN/Creatinine Ratio (7 - 25 %) 23.3 Glucose (65 - 99 mg/dL) 131 H Calcium (8.4 - 10.2 mg/dL) 8.9 Total Bilirubin (0.2 - 1.3 mg/dL) 1.2 Direct Bilirubin (< 0.4 mg/dL) 0.2 AST (14 - 36 U/L) 89 H ALT (9 - 52 U/L) 95 H Alkaline Phosphatase (<127 U/L) 132 H Troponin I (< 0.11 ng/ml) < 0.01 Total Protein (6.3 - 8.2 g/dL) 6.9 Albumin (3.5 - 5.0 g/dL) 4.3 Globulin (1.9 - 4.2 gm/dL) 2.6 Albumin/Globulin Ratio (1.1 - 2.2 %) 1.7 Lipase (23 - 300 U/L) 49 Beta HCG, Quant (mIU/mL) 5.8 Hematology CBC w Diff NO MAN DIFF REQ WBC (4.8 - 10.8 /CUMM) 10.5 RBC (4.20 - 5.40 /CUMM) 4.56 Hgb (12.0 - 16.0 G/DL) 12.4 Hct (37 - 47 %) 36.7 L MCV (81.0 - 99.0 FL) 80.4 L MCH (27.0 - 31.0 PG) 27.1 RDW (11.5 - 14.5 %) 13.4 Plt Count (130 - 400 /CUMM) 249 MPV (7.4 - 10.4 FL) 7.3 L Gran % (42.2 - 75.2 %) 93.7 H Lymphocytes % (20.5 - 51.1 %) 4.8 L Monocytes % (1.7 - 9.3 %) 1.5 L Eosinophils % (0 - 5 %) 0 Basophils % (0.0 - 2.0 %) 0 L Absolute Granulocytes (1.4 - 6.5 /CUMM) 9.8 H Absolute Lymphocytes (1.2 - 3.4 /CUMM) 0.5 L Absolute Monocytes (0.10 - 0.60 /CUMM) 0.2 Absolute Eosinophils (0.0 - 0.7 /CUMM) 0 Absolute Basophils (0.0 - 0.2 /CUMM) 0 PUBS MCHC (33.0 - 37.0 G/DL) 33.7 Urines Urinalysis LIGHT H Urine Color (YEL,AMB,STR) YEL Urine Clarity (CLEAR) HAZY H Urine pH (5.0 - 8.0) 7.5 Ur Specific Helen (1.001 - 1.035) 1.015 Urine Protein (NEG,<30 MG/DL) NEG Urine Ketones (NEG) TRACE H Urine Nitrite (NEG) NEG Urine Bilirubin (NEG) NEG Urine Urobilinogen (0.1 - 1.0 EU/dl) 0.2 Ur Leukocyte Esterase (NEG) NEG Ur Microscopic SEDIMENT EXAMINED Urine RBC (0 - 5 /HPF) 3-5 Urine Hemoglobin (NEG) SMALL H Urine Glucose (N MG/DL) NEG Acute Coronary Syndrome Inclusion Criteria ACS Diagnosis No Inpatient Core Measures LDL Reminder: If No, please order W/I first 24hr of stay Congestive Heart Failure Inclusion Criteria CHF Diagnosis No Cerebrovascular accident Inclusion Criteria CVA/TIA Diagnosis No Inpatient Core Measures Bedside Swallow Eval Reminder: If BSE failed, place ST order Antithrombotic Reminder: Order Antithrombotic Medication by end of day 2 Antithrombotic Reminder: Document Reason Antithrombotic Not ordered by end of day 2 AFIB/Flutter Reminder: If Present, add to problem list AFIB/Flutter Reminder: Order Anticoag Medication for pts with AFIB/Flutter Atherosclerosis Reminder: If Present, add to problem list LDL Reminder: If No, please order W/I first 24hr of stay PT Order Reminder: If No, please order Venous thromboembolism Inpatient Core Measures VTE Risk Factors: Age > 40, [facility] prophylaxis d/t No contraindications No VTE Pharm Prophylaxis d/t No contraindications Inclusion Criteria - Per Current guidelines, there needs to be overlap - treatment for the first 5 days of Warfarin therapy. - Parenteral Anticoagulation (IV or SC) needs to be - given along with Warfarin therapy. VTE Diagnosis No VTE Type NONE VTE Confirmed by (Test) NONE Problem List As ranked by this Provider includes Assessment & Plan 1. Acute cholecystitis HOME MEDS Home Med List No Known Home Medications
[2017-03-21 16:10] VITALS: BP 120/66
--- NOTE | 2017-03-21 18:17 | Operative Report ---
Operative/Inv Procedure Report Surgery Date: 03/21/17 Name of Procedure: Laparoscopic Cholecystectomy Pre-Operative Diagnosis: Acute Cholecystitis/Cholelithiasis Post-Operative Diagnosis: Same Estimated Blood Loss: less than 50ml Surgeon/Regulatory Assistant: DIO COLLIER Anesthesia: general endotracheal tube IV Fluids: 1300 c Drains: None Specimens: Gallbladder Complications: None Condition: Stable Operative Indication: This is a 46-year-old female that presented to the emergency room with abdominal pain. Patient was diagnosed with acute cholecystitis after appropriate workup was completed. A laparoscopic possible open cholecystectomy was discussed in detail. All risks including but not limited to bleeding, infection, bile leak, and injury to surrounding duct/bowel were discussed in detail. The patient understood everything and decided to proceed. Operative/Procedure Note Note: The patient was brought to the operating room and placed on the operating room table in supine position. Venodyne stockings were placed and adequate general endotracheal anesthesia was obtained. The patient was prepped and draped in standard surgical fashion. We began the procedure by making a 2 cm transverse incision in the infraumbilical crease. The incision was carried down to the fascia, once the fascia was clearly visualized it was picked up between 2 alejandra clamps. The fascia was divided in the midline and once we entered the peritoneum 2 stay 0 Vicryl sutures were placed on each side. A 12 mm blunt port was inserted and the abdominal cavity was insufflated to 15 mmHg. A 10 mm 30 laparoscope was introduced and upon initial examination no obvious gross pathology was seen. We did note a markedly distended gallbladder in the right upper quadrant. Accessory trocars were placed, all 5 mm, one in the epigastrium and 2 in the right upper quadrant (one in the midclavicular line and one in the anterior axillary line, both 2 fingerbreadths below the costal margin). The gallbladder was grasped with the lateralmost trocar and retracted up over the liver. Using the other 2 accessory trocars the infundibulum was grasped and the peritoneum was lysed using blunt dissection and using hook electrocautery. The cystic duct and cystic artery were visualized. The common bile duct was visualized and it was away from our area of dissection (of note the common bile duct was very close to the gallbladder with a short cystic duct). The cystic duct and artery were skeletonized and divided between clips, 3 clips to stay and one clip on the gallbladder side for the duct and 2 clips to stay and one clip on the gallbladder side for the artery. The gallbladder was dissected off the liver bed using hook electrocautery maintaining hemostasis, gallbladder wall was noted to be edematous and thick. Prior to completely removing the gallbladder off the liver bed we examined the area of dissection no obvious bile leak or bleeding was noted, the clips appeared to be in good position. The gallbladder was completely detached from the liver bed. We switched to a 5 mm laparoscope and a 10 mm Endobag was introduced through the umbilical trocar site. The gallbladder was placed in the bag and removed through the umbilicus ( the incision had to be extended due to the large size of stones). The abdomen was reinsufflated. We switched back to a 10 mm laparoscope and examined our area of dissection. No obvious bile leak or bleeding was noted. The right upper quadrant was irrigated until clear. All ports were removed under direct visualization, no obvious bleeding was noted. The umbilical trocar site was closed using 0 Vicryl suture. The skin was closed using 4-0 Monocryl. Steri- Strips and dressings were placed. The patient was successfully extubated and transferred to the recovery room in stable condition. The patient tolerated the procedure well with no complications. Findings: Edematous/thick gallbladder wall, large galstones, markedly distended gallbladder CC: FAVIAN JAMIL,NAKIA
--- NOTE | 2017-03-21 18:22 | Patient Discharge Instructions ---
Discharge Instructions General Discharge Information You were seen/treated for: acute cholecystitis You had these procedures: laparoscopic cholecystectomy (03/21/17) Watch for these problems: fever>101.3, increased pain, redness/swelling/drainage No bath, but you may shower: Yes Other wound care: ok to remove outer dressings. leave white steri strips in place. keep incisions clean & dry. Diet Continue normal diet: Yes Recommended Diet: Low Fat Activity Full Activity/No Limits: No Activity Self Limited: Yes Pounds, do NOT lift more than: 10 Other activity limits: no heavy lifting. no strenuous activity. Acute Coronary Syndrome Inclusion Criteria At DC or during hospital stay patient has or had the following: ACS DIAGNOSIS No Discharge Core Measures Meds if any: Prescribed or Continued at Discharge Meds if any: NOT Prescribed or Continued at Discharge Congestive Heart Failure Inclusion Criteria At DC or during hospital stay patient has or had the following: CHF DIAGNOSIS No Discharge Core Measures Meds if any: Prescribed or Continued at Discharge Meds if any: NOT Prescribed or Continued at Discharge Cerebrovascular accident Inclusion Criteria At DC or during hospital stay patient has or had the following: CVA/TIA Diagnosis No Discharge Core Measures Meds if any: Prescribed or Continued at Discharge Meds if any: NOT Prescribed or Continued at Discharge Venous thromboembolism Inclusion Criteria VTE Diagnosis No VTE Type NONE VTE Confirmed by (Test) NONE Discharge Core Measures - Per Current guidelines, there needs to be overlap - treatment for the first 5 days of Warfarin therapy. - If discharged on Warfarin prior to 5 days of - overlap therapy, the patient will need to be - assessed for post discharge needs including - *Post discharge parental anticoagulation - *Warfarin and/or parental anticoagulation education - *Follow up date to check INR post discharge At least 5 days overlap therapy as Inpatient No Meds if any: Prescribed or Continued at Discharge Note: Overlap Therapy is Warfarin and Anticoagulant Meds if any: NOT Prescribed or Continued at Discharge
== END ==
LOC: ERH 10:57 → STS 16:35
PROVIDERS: Emergency Medicine
DX: K80.00 Calculus of gallbladder with acute cholecystitis without obstruction (principal)
CPT/HCPCS: 81001; 88304; 93005; 93010; 96374; 96375; J0131; J0690; J1170; J2250; J2405; J3010